=== PATIENT | male | born 1930 | race Caucasian/White ===

== ENCOUNTER 2020-02-23 09:06 | Day surgery (SDC) | payer MEDICARE, OTHER ==
[2020-02-22 11:52] LABS: BASOPHILS # (AUTO) 0.02 x10^3/uL (0-0.1); BASOPHILS % (AUTO) 0 % (0-1); EOSINOPHILS # (AUTO) 0.19 x10^3/uL (0-0.4); EOSINOPHILS % (AUTO) 3 % (1-7); LYMPHOCYTES # (AUTO) 1.32 x10^3/uL (1-3.4); LYMPHOCYTES % (AUTO) 24 % (22-44); MD NO; MEAN CORPUSCULAR HEMOGLOBIN 35.2 pg (27.5-34.5); MEAN CORPUSCULAR HGB CONC 34.8 g/dL (33.2-36.2); MEAN CORPUSCULAR VOLUME 101.1 fL (81-97); MEAN PLATELET VOLUME 8.4 fL (7.4-10.4); MONOCYTES # (AUTO) 0.61 x10^3/uL (0.2-0.8); MONOCYTES % (AUTO) 11 % (2-9); NEUTROPHILS # (AUTO) 3.37 x10^3/uL (1.8-6.8); NEUTROPHILS % (AUTO) 61 % (42-75); PLATELET COUNT 177 x10^3/uL (130-400); RED BLOOD COUNT 4.21 x10^6/uL (4.38-5.82); RED CELL DISTRIBUTION WIDTH 11.9 % (9.4-14.8)
[2020-02-22 12:00] LABS: PROTHROMBIN TIME 10.6 Seconds (9.6-11.5)
[2020-02-22 12:01] LABS: ANION GAP 7 mmol/L (5-15); CHLORIDE 102 mmol/L (98-107); CREATININE 0.81 mg/dL (0.7-1.3)
[2020-02-22 12:24] LABS: MICROSCOPIC INDICATED
[~2020-02-23] VITALS: Ht 172.7 cm; Wt 91.0 kg
[~2020-02-23 09:06] MED LIST: AMLO1CAP3 PO; DOXA4TAB3 PO; FEXO1TAB29 PO; FOLIC ACID PO
[2020-02-23] MEDS ORDERED: LACTATED RINGERS 1,000 ML IV SCH (09:24)
[2020-02-23 09:26] VITALS: BP 157/89
[2020-02-23] MEDS ORDERED: CHLORHEXIDINE 15 ML UDC MM ONE (09:30)
[2020-02-23] MEDS ORDERED: CHLORHEXIDINE 15 ML UDC ONE (09:38)
[2020-02-23] MEDS ORDERED: GEMCITABINE HCL IS ONE (10:00)
[2020-02-23] MEDS ORDERED: SODIUM CHLORIDE 0.9% IS ONE (10:00)
[2020-02-23] MEDS ORDERED: FENTANYL PF 100 MCG/2ML ONE ×2 (11:54→14:01)
[2020-02-23] MEDS ORDERED: ACETAMINOPHEN 325 MG TABLET PO PRN (13:00)
[2020-02-23] MEDS ORDERED: OXYcodone 5 MG/5 ML ORAL.SOL UDC PO PRN (13:00)
[2020-02-23] MEDS ORDERED: LABETALOL 5MG/ML, 20ML IV PRN (13:00)
[2020-02-23] MEDS ORDERED: HYDROmorphone 2 MG/ML, 1ML IVPush PRN (13:00)
[2020-02-23] MEDS ORDERED: hydrALAzine 20 MG/ML, 1ML IV PRN (13:00)
[2020-02-23] MEDS ORDERED: ALBUTEROL SULFATE 2.5 MG/3 ML NPPB PRN (13:00)
[2020-02-23] MEDS ORDERED: MEPERIDINE/PF 25MG/0.5ML IVPush PRN (13:00)
[2020-02-23] MEDS ORDERED: SUGAMMADEX 200 MG/2 ML IVPush ONE (13:14)
[2020-02-23] MEDS ORDERED: SUCCINYLCHOLINE 20 MG/ML, 10ML ONE (13:14)
[2020-02-23] MEDS ORDERED: CEFAZOLIN 1,000 MG ONE (13:14)
[2020-02-23] MEDS ORDERED: ONDANSETRON 2MG/ML, 2ML ONE (13:14)
[2020-02-23] MEDS ORDERED: ROCURONIUM 10MG/ML,5ML ONE (13:14)
[2020-02-23] MEDS ORDERED: PROPOFOL 10 MG/ML, 20ML ONE (13:14)
[2020-02-23] MEDS ORDERED: DEXAMETHASONE 4 MG/ML, 1ML ONE (13:14)
[2020-02-23] MEDS ORDERED: NEOSTIGMINE 1 MG/ML, 10ML ONE (13:14)
[2020-02-23] MEDS ORDERED: GLYCOPYRROLATE 0.2MG/1ML, 5ML ONE (13:14)
[2020-02-23] MEDS: FENTANYL PF 100 MCG/2ML IV PRN ×2 (14:05→14:20)
[2020-02-23] MEDS ORDERED: OXYcodone 5 MG/5 ML ORAL.SOL UDC ONE (14:25)
== END 2020-02-23 16:35 | disposition home or self-care (01) ==
LOC: OUT 09:06
PROVIDERS: ATTEND Student in an Organized Health Care Education/Training Program
DX: D49.4 Neoplasm of unspecified behavior of bladder (principal); C67.4 Malignant neoplasm of posterior wall of bladder; N40.0 Benign prostatic hyperplasia without lower urinary tract symptoms; I10 Essential (primary) hypertension; Z79.01 Long term (current) use of anticoagulants; Z79.899 Other long term (current) drug therapy; Z87.891 Personal history of nicotine dependence; Z95.0 Presence of cardiac pacemaker; Z83.3 Family history of diabetes mellitus
CPT/HCPCS: 36415; 80048; 81001; 85025; 85610; 85730; 87086; 88305; 93005; J0690; J1100; J2405; J2704; J2710; J3010; J0330; J7120

== ENCOUNTER 2020-02-25 00:57 | Inpatient (IN) | payer MEDICARE, OTHER ==
[~2020-02-25] VITALS: Ht 185.4 cm; Wt 85.0 kg
[2020-02-25] MEDS ORDERED: PROPOFOL 100 ML IV PRN (01:06)
[2020-02-25] MEDS ORDERED: PROPOFOL 100 ML IV ONE ×2 (01:10→03:03)
[2020-02-25] MEDS ORDERED: MIDAZOLAM 1 MG/ML, 5ML ONE ×4 (01:27→02:21)
[2020-02-25] MEDS ORDERED: ETOMIDATE 20 MG/10 ML IVPush ONE (01:30)
[2020-02-25] MEDS ORDERED: SODIUM CHLORIDE 0.9% 1,000ML IVBOLUS ONE ×3 (01:30→02:30)
[2020-02-25] MEDS ORDERED: SODIUM CHLORIDE FLUSH 10ML SYR IVF ONE (01:30)
[2020-02-25] MEDS ORDERED: SUCCINYLCHOLINE 20 MG/ML, 10ML IVPush ONE (01:30)
[2020-02-25] MEDS ORDERED: MIDAZOLAM 1 MG/ML, 2ML IVPush ONE ×2 (01:30→05:00)
--- NOTE | 2020-02-25 01:30 | NUR ---
LATE ENTRY: PT PRANAV ANGELES FROM HIS HOME IN [place] THIS MORNING AFTER CALLING [employer] FROM HOME. UPON ARRIVAL, EMS FOUND PT TO BE HYPOXIC AT 75% RA AND INCREASED WORK OF BREATHING. PT PLACED ON CPAP AND TRANSPORTED TO [facility] ED. UPON ARRIVAL, PT FOUND TO BE 84% ON CPAP, WITH RR OF 40. DR HIRSCH NOTIFIED. ROOM PREPPED FOR INTUBATION OF PT. SEPIDEH CABRERA AND PEYTON REYES TO ASSIST THIS RN. PT EXPLAINED PROCEDURE AND VERBALIZES UNDERSTANDING AT THIS TIME.
[2020-02-25 01:31] LABS: BASOPHILS # (AUTO) 0.05 x10^3/uL (0-0.1); BASOPHILS % (AUTO) 0 % (0-1); EOSINOPHILS # (AUTO) 0.02 x10^3/uL (0-0.4); EOSINOPHILS % (AUTO) 0 % (1-7); LYMPHOCYTES # (AUTO) 1.31 x10^3/uL (1-3.4); LYMPHOCYTES % (AUTO) 10 % (22-44); MD NO; MEAN CORPUSCULAR HEMOGLOBIN 34.6 pg (27.5-34.5); MEAN CORPUSCULAR VOLUME 101.7 fL (81-97); MEAN PLATELET VOLUME 8.9 fL (7.4-10.4); MONOCYTES % (AUTO) 3 % (2-9); NEUTROPHILS # (AUTO) 11.27 x10^3/uL (1.8-6.8); NEUTROPHILS % (AUTO) 86 % (42-75); PLATELET COUNT 169 x10^3/uL (130-400); RED BLOOD COUNT 4.17 x10^6/uL (4.38-5.82); RED CELL DISTRIBUTION WIDTH 12.3 % (9.4-14.8)
--- NOTE | 2020-02-25 01:37 | NUR ---
DR HIRSCH AT WITH RT. PT PLACED FLAT AND 20 OF ETOMIDATE AND 160 SUCC WAS GIVEN BY DR. HIRSCH VIA IV PUSH. PT WAS INTUBATED USING 8.0 ET TUBE TAPED AT 24 CM AT THE LIP. CORRECT PLACEMENT OF ET TUBE VERIFIED BY ETCO2 AND AUSCULATION. 14 FR NG TUBE DROPPED AND TAPED ALONGSIDE ET TUBE AT THIS TIME, WITH A SMALL AMOUNT OF GASTRIC CONTENTS PRESENT AND PLACEMENT VERIFIED BY AUSCULATION AT THIS TIME. AWAITING XRAY FOR CONFIRMATION OF PLACEMENT.
[2020-02-25 01:38] LABS: INTERNATIONAL NORMALIZED RATIO 1.01 (0.93-1.1); PROTHROMBIN TIME 10.7 Seconds (9.6-11.5)
--- NOTE | 2020-02-25 01:39 | NUR ---
LEVOPHED REQUESTED FROM PHARM PER VERBAL FROM DR HIRSCH
[2020-02-25 01:42] LABS: ALANINE AMINOTRANSFERASE 35 U/L (12-78); ANION GAP 11 mmol/L (5-15); CALCIUM 8.4 mg/dL (8.5-10.1); CHLORIDE 94 mmol/L (98-107); CREATININE 1.31 mg/dL (0.7-1.3)
--- NOTE | 2020-02-25 01:45 | NUR ---
Pt not tolerating sedation well, versed pushes admin via md verbal order. Pt still not tolerating and bp continues to plummet. Levo to be given peripheral until cxr confirmation of central line. Main rn at bedside.
[2020-02-25 01:46] LABS: ALKALINE PHOSPHATASE 71 U/L (45-117); BILIRUBIN,TOTAL 1.3 mg/dL (0.2-1.0); TOTAL PROTEIN 7.8 g/dL (6.4-8.2)
[2020-02-25] MEDS ORDERED: ROCURONIUM 10MG/ML,5ML ONE (01:47)
--- NOTE | 2020-02-25 01:55 | NUR ---
CALLED RAD FOR CXR
--- NOTE | 2020-02-25 01:55 | NUR ---
DR. HIRSCH AT AND CENTRAL LINE PLACED. LABS DRAWN. JOLLEY CATHETER INITIATED. PT MEDICATED PER MAR AT THIS TIME. RECTAL PROBE THERMOMETER PLACED. AWAITING FURTHER ORDERS AT THIS TIME. A
[2020-02-25] MEDS ORDERED: SODIUM CHLORIDE 0.9% 1,000 ML IV ONE (01:58)
[2020-02-25] MEDS ORDERED: NOREPINEPHRINE 8 MG in SODIUM CHLORIDE 0.9% 242 ML IV PRN ×2 (02:00→04:01)
[2020-02-25] MEDS ORDERED: ASPIRIN 300 MG SUPP PR ONE (02:00)
--- NOTE | 2020-02-25 02:00 | NUR ---
EKG DONE AND GIVEN TO MD. DELAY IN EKG DUE TO PTS CRITICAL NATURE REQUIRING INTUBATION AND CENTRAL LINE PLACEMENT
[2020-02-25] MEDS ORDERED: HEPARIN 5,000 UNITS/ML, 1ML ONE ×2 (02:02→09:26)
[2020-02-25] MEDS ORDERED: HEPARIN 25,000 UNITS/250ML PMX 250 ML ONE (02:04)
--- NOTE | 2020-02-25 02:11 | NUR ---
This rn at bedside to assist in sedation and intubation of pt. In room throughout.
--- NOTE | 2020-02-25 02:20 | NUR ---
Central line confirmed by cxr and levo switched to central line.
[2020-02-25] MEDS ORDERED: CEFTRIAXONE PMX 1GM/50ML 50 ML ONE (02:29)
[2020-02-25] MEDS ORDERED: HEPARIN 5,000 UNITS/ML, 1ML IV ONE (02:30)
[2020-02-25] MEDS ORDERED: CEFTRIAXONE PMX 1GM/50ML 50 ML IV ONE (02:30)
[2020-02-25] MEDS ORDERED: AZITHROMYCIN 500 MG in SODIUM CHLORIDE 0.9% 250 ML IV ONE (02:30)
[2020-02-25] MEDS ORDERED: HEPARIN 25,000 UNITS/250ML PMX 250 ML IV PRN (02:30)
--- NOTE | 2020-02-25 02:34 | NUR ---
Blood cultures noted in chart prior to admin of abx.
--- NOTE | 2020-02-25 03:05 | NUR ---
PT RESTING COMFORTABLY IN [place] AT THIS TIME. VSS. PT PROVIDED WARM BLANKETS. MEDICATIONS AND RATES VERIFIED ON ALL PUMPS. URINE SAMPLE COLLECTED TO SEND TO LAB AT THIS TIME.
--- NOTE | 2020-02-25 03:50 | NUR ---
Note guillermo in EDM - 02/25/[address] at [address] DAVIS AT . PT TOLERATING MEDICATION ADJUSTMENTS WELL. VSS. RT NOTIFIED OF PT O2 SAT IN LOW 90'S AND RT TO COME TO BEDSIDE.
--- NOTE | 2020-02-25 03:52 | NUR ---
NG TUBE ADVANCED APPROXIMATELY 10 CM FURTHER. GASTRIC CONTENTS APPEAR TO BE DRAINING WELL ON INTERMITTENT SUCTION AT THIS TIME.
[2020-02-25 04:13] LABS: MICROSCOPIC INDICATED
[2020-02-25 04:14] LABS: CULTURE INDICATED? YES
[2020-02-25] MEDS ORDERED: GLUCAGON 1 MG IM PRN (04:30)
[2020-02-25] MEDS ORDERED: DEXTROSE 4 GM TAB.CHEW PO PRN (04:30)
[2020-02-25] MEDS ORDERED: PHARMACY MAY ADJ FOR RENAL FX MC SCH ×2 (04:30→14:00)
[2020-02-25] MEDS ORDERED: LIDOCAINE-MPF 1%, 2ML ENDO PRN ×2 (04:30→14:00)
[2020-02-25] MEDS ORDERED: BISACODYL 10 MG SUPP PR PRN (04:30)
[2020-02-25] MEDS ORDERED: DEXTROSE 50%, 50ML SYRINGE IVPush PRN (04:30)
[2020-02-25] MEDS ORDERED: SENNA 176 MG/5 ML ORAL SOL NG PRN (04:30)
--- NOTE | 2020-02-25 04:58 | NUR ---
LATE ENTRY- VERBAL ORDERS RECEIVED DURING INTUBATION FROM DR HIRSCH FOR A TOTAL OF 20 MG VERSED. PT WAS MEDICATED WITH VERSED IN 5 MG DOSES @ 0120, 0128, 0138 AND 0155. MEDICATION WAS PLACED ONE DOSE BY DR. HIRSCH TO ACCOUNT FOR TOTAL VOLUME OF VERSED GIVEN DURING CARE OF PT.
--- NOTE | 2020-02-25 05:23 | NUR ---
REPORT OF PT TO PEYTON SANTIAGO AT THIS TIME. ALL QUESTIONS ANSWERED. PT BEING TRANSPORTED TO ICU WITH SEPIDEH HARRIS, AND PEYTON Soliman PT STABLE PRIOR TO D/C. RT CALLED FOR ASSISTANCE TO TRANSPORT VENTILATOR.
[2020-02-25] MEDS ORDERED: PYRI (05:27)
[2020-02-25 06:03] LABS: MEAN CORPUSCULAR HEMOGLOBIN 35.2 pg (27.5-34.5); MEAN CORPUSCULAR HGB CONC 34.5 g/dL (33.2-36.2); MEAN PLATELET VOLUME 9.1 fL (7.4-10.4); PLATELET COUNT 163 x10^3/uL (130-400); RED BLOOD COUNT 3.92 x10^6/uL (4.38-5.82); RED CELL DISTRIBUTION WIDTH 12.6 % (9.4-14.8)
[2020-02-25 06:08] LABS: ALANINE AMINOTRANSFERASE 33 U/L (12-78); ALBUMIN 3.4 g/dL (3.4-5.0); ANION GAP 9 mmol/L (5-15); CALCIUM 7.7 mg/dL (8.5-10.1); CHLORIDE 100 mmol/L (98-107); CREATININE 1.07 mg/dL (0.7-1.3)
[2020-02-25 06:12] LABS: ALKALINE PHOSPHATASE 61 U/L (45-117); BILIRUBIN,TOTAL 1.4 mg/dL (0.2-1.0); CHOL/HDL RATIO 2.6; CHOLESTEROL, TOTAL 163 mg/dL (140-239); HDL CHOL % 38 % (26-37); HDL CHOLESTEROL (DIRECT) 62 mg/dL (40-60); LDL CHOLESTEROL,CALCULATED 84 mg/dL (54-169); LDL/HDL RATIO 1.4 (0.5-3.0); TRIGLYCERIDES 87 mg/dL (50-200); VLDL CHOLESTEROL 17 mg/dL (0-25)
[2020-02-25 06:42] LABS: BASOPHILS # (AUTO) 0.07 x10^3/uL (0-0.1); BASOPHILS % (AUTO) 1 % (0-1); EOSINOPHILS % (AUTO) 0 % (1-7); LYMPHOCYTES # (AUTO) 0.69 x10^3/uL (1-3.4); LYMPHOCYTES % (AUTO) 5 % (22-44); MD SCAN; MONOCYTES # (AUTO) 0.25 x10^3/uL (0.2-0.8); MONOCYTES % (AUTO) 2 % (2-9); NEUTROPHILS # (AUTO) 13.07 x10^3/uL (1.8-6.8); NEUTROPHILS % (AUTO) 93 % (42-75)
[2020-02-25] MEDS: PROPOFOL 100 ML IV PRN ×3 (07:40→21:19)
[2020-02-25] MEDS: AZITHROMYCIN 500 MG in SODIUM CHLORIDE 0.9% 250 ML IV SCH (07:41)
[2020-02-25] MEDS: SODIUM CHLORIDE FLUSH 10ML SYR IVF SCH ×2 (09:00→21:18)
[2020-02-25] MEDS ORDERED: NOREPINEPHRINE 32 MG in SODIUM CHLORIDE 0.9% 218 ML IV PRN (10:00)
[2020-02-25] MEDS: HEPARIN 5,000 UNITS/ML, 1ML IV PRN ×2 (10:02→17:56)
[2020-02-25] MEDS: CEFTRIAXONE PMX 1GM/50ML 50 ML IV SCH (10:02)
[2020-02-25] MEDS: INSULIN LISPRO 100 UNITS/ML, PEN SQ-INSULIN SCH ×4 (10:07→21:41)
[2020-02-25] MEDS: HEPARIN 25,000 UNITS/250ML PMX 250 ML IV PRN ×3 (10:20→20:57)
[2020-02-25 12:10] LABS: RAPID INFLUENZA A POSITIVE (Negative); RAPID INFLUENZA B Negative (Negative)
[2020-02-25 14:32] LABS: TRIGLYCERIDES 82 mg/dL (50-200)
[2020-02-25] MEDS: OSELTAMIVIR 6 MG/ML ORAL SUSP PO SCH ×2 (16:35→21:19)
[2020-02-26] MEDS: PROPOFOL 100 ML IV PRN ×3 (03:21→17:13)
[2020-02-26] MEDS: INSULIN LISPRO 100 UNITS/ML, PEN SQ-INSULIN SCH ×4 (05:20→21:34)
[2020-02-26 05:46] LABS: CALCIUM 7.9 mg/dL (8.5-10.1); CREATININE 0.79 mg/dL (0.7-1.3)
[2020-02-26 05:49] LABS: BASOPHILS # (AUTO) 0.04 x10^3/uL (0-0.1); BASOPHILS % (AUTO) 1 % (0-1); EOSINOPHILS # (AUTO) 0.06 x10^3/uL (0-0.4); EOSINOPHILS % (AUTO) 1 % (1-7); LYMPHOCYTES # (AUTO) 1.03 x10^3/uL (1-3.4); LYMPHOCYTES % (AUTO) 15 % (22-44); MD NO; MEAN CORPUSCULAR HGB CONC 34.4 g/dL (33.2-36.2); MEAN CORPUSCULAR VOLUME 101.7 fL (81-97); MEAN PLATELET VOLUME 8.7 fL (7.4-10.4); MONOCYTES # (AUTO) 0.19 x10^3/uL (0.2-0.8); MONOCYTES % (AUTO) 3 % (2-9); NEUTROPHILS # (AUTO) 5.47 x10^3/uL (1.8-6.8); NEUTROPHILS % (AUTO) 80 % (42-75); PLATELET COUNT 128 x10^3/uL (130-400); RED BLOOD COUNT 3.47 x10^6/uL (4.38-5.82); RED CELL DISTRIBUTION WIDTH 12.7 % (9.4-14.8)
[2020-02-26 05:51] LABS: ANION GAP 7 mmol/L (5-15); CHLORIDE 103 mmol/L (98-107)
[2020-02-26] MEDS: AZITHROMYCIN 500 MG in SODIUM CHLORIDE 0.9% 250 ML IV SCH (06:44)
[2020-02-26] MEDS ORDERED: LEVOFLOXACIN/PMX 750MG/150ML 150 ML IV SCH (08:00)
[2020-02-26] MEDS: OSELTAMIVIR 6 MG/ML ORAL SUSP PO SCH ×2 (09:35→21:34)
[2020-02-26] MEDS: CEFTRIAXONE PMX 1GM/50ML 50 ML IV SCH (09:36)
[2020-02-26] MEDS: SODIUM CHLORIDE FLUSH 10ML SYR IVF SCH ×2 (09:36→21:33)
[2020-02-26] MEDS: HEPARIN 5,000 UNITS/ML, 1ML IV PRN (14:46)
[2020-02-26] MEDS: HEPARIN 25,000 UNITS/250ML PMX 250 ML IV PRN (14:48)
[2020-02-26] MEDS: ATORVASTATIN 80 MG TABLET PO SCH (21:33)
[2020-02-27] MEDS: PROPOFOL 100 ML IV PRN ×4 (00:07→22:46)
[2020-02-27] MEDS: INSULIN LISPRO 100 UNITS/ML, PEN SQ-INSULIN SCH ×4 (03:41→22:00)
[2020-02-27 03:57] LABS: BASOPHILS # (AUTO) 0.01 x10^3/uL (0-0.1); BASOPHILS % (AUTO) 0 % (0-1); EOSINOPHILS # (AUTO) 0.15 x10^3/uL (0-0.4); EOSINOPHILS % (AUTO) 3 % (1-7); LYMPHOCYTES # (AUTO) 1.01 x10^3/uL (1-3.4); LYMPHOCYTES % (AUTO) 17 % (22-44); MD NO; MEAN CORPUSCULAR HEMOGLOBIN 34.9 pg (27.5-34.5); MEAN CORPUSCULAR HGB CONC 34.1 g/dL (33.2-36.2); MEAN CORPUSCULAR VOLUME 102.4 fL (81-97); MEAN PLATELET VOLUME 8.7 fL (7.4-10.4); MONOCYTES # (AUTO) 0.16 x10^3/uL (0.2-0.8); MONOCYTES % (AUTO) 3 % (2-9); NEUTROPHILS # (AUTO) 4.54 x10^3/uL (1.8-6.8); NEUTROPHILS % (AUTO) 77 % (42-75); PLATELET COUNT 128 x10^3/uL (130-400); RED BLOOD COUNT 3.11 x10^6/uL (4.38-5.82); RED CELL DISTRIBUTION WIDTH 12.4 % (9.4-14.8)
[2020-02-27 04:03] LABS: ANION GAP 4 mmol/L (5-15); CALCIUM 7.8 mg/dL (8.5-10.1); CHLORIDE 105 mmol/L (98-107); CREATININE 0.67 mg/dL (0.7-1.3)
[2020-02-27] MEDS ORDERED: ASPIRIN 81 MG TABLET EC PO SCH (06:00)
[2020-02-27] MEDS: AZITHROMYCIN 500 MG in SODIUM CHLORIDE 0.9% 250 ML IV SCH (07:51)
[2020-02-27] MEDS: POTASSIUM CHLORIDE 10% 40 MEQ/30 ML UDC PO SCH ×2 (08:54→22:46)
[2020-02-27] MEDS: OSELTAMIVIR 6 MG/ML ORAL SUSP PO SCH ×2 (08:54→22:46)
[2020-02-27] MEDS: SODIUM CHLORIDE FLUSH 10ML SYR IVF SCH (08:55)
[2020-02-27] MEDS: ASPIRIN 81 MG TABLET CHEW NG SCH (08:55)
[2020-02-27] MEDS: LACTULOSE 20 GM/30 ML UDC NG PRN (08:55)
[2020-02-27] MEDS ORDERED: FUROSEMIDE 40 MG/4 ML IV ONE (09:30)
[2020-02-27] MEDS: CEFTRIAXONE PMX 1GM/50ML 50 ML IV SCH (10:29)
[2020-02-27] MEDS: ATORVASTATIN 80 MG TABLET PO SCH (22:45)
[2020-02-28] MEDS: PROPOFOL 100 ML IV PRN ×3 (04:55→20:54)
[2020-02-28] MEDS: SODIUM CHLORIDE FLUSH 10ML SYR IVF SCH ×3 (04:55→20:56)
[2020-02-28 05:20] LABS: ANION GAP 5 mmol/L (5-15); CALCIUM 8.5 mg/dL (8.5-10.1); CHLORIDE 107 mmol/L (98-107); CREATININE 0.84 mg/dL (0.7-1.3); TRIGLYCERIDES 136 mg/dL (50-200)
[2020-02-28 05:54] LABS: BASOPHILS # (AUTO) 0.02 x10^3/uL (0-0.1); BASOPHILS % (AUTO) 0 % (0-1); EOSINOPHILS # (AUTO) 0.16 x10^3/uL (0-0.4); EOSINOPHILS % (AUTO) 3 % (1-7); LYMPHOCYTES # (AUTO) 0.73 x10^3/uL (1-3.4); LYMPHOCYTES % (AUTO) 12 % (22-44); MD SCAN; MEAN CORPUSCULAR HEMOGLOBIN 35.1 pg (27.5-34.5); MEAN CORPUSCULAR HGB CONC 34.1 g/dL (33.2-36.2); MEAN CORPUSCULAR VOLUME 102.7 fL (81-97); MEAN PLATELET VOLUME 8.6 fL (7.4-10.4); MONOCYTES # (AUTO) 0.27 x10^3/uL (0.2-0.8); MONOCYTES % (AUTO) 5 % (2-9); NEUTROPHILS # (AUTO) 4.73 x10^3/uL (1.8-6.8); NEUTROPHILS % (AUTO) 80 % (42-75); PLATELET COUNT 134 x10^3/uL (130-400); RED BLOOD COUNT 3.22 x10^6/uL (4.38-5.82); RED CELL DISTRIBUTION WIDTH 12.4 % (9.4-14.8)
[2020-02-28] MEDS: AZITHROMYCIN 500 MG in SODIUM CHLORIDE 0.9% 250 ML IV SCH (06:00)
[2020-02-28] MEDS: INSULIN LISPRO 100 UNITS/ML, PEN SQ-INSULIN SCH ×2 (06:01→08:05)
[2020-02-28] MEDS: OSELTAMIVIR 6 MG/ML ORAL SUSP PO SCH ×2 (07:58→20:54)
[2020-02-28] MEDS: ASPIRIN 81 MG TABLET CHEW NG SCH (07:58)
[2020-02-28] MEDS: ENOXAPARIN 40 MG/0.4 ML SQ SCH (07:59)
[2020-02-28] MEDS: CEFTRIAXONE PMX 1GM/50ML 50 ML IV SCH (09:12)
[2020-02-28] MEDS ORDERED: FUROSEMIDE 20 MG/2 ML IV ONE (19:00)
[2020-02-28] MEDS: ATORVASTATIN 80 MG TABLET PO SCH (20:54)
[2020-02-29] MEDS: PROPOFOL 100 ML IV PRN ×5 (00:54→21:10)
[2020-02-29] MEDS: AZITHROMYCIN 500 MG in SODIUM CHLORIDE 0.9% 250 ML IV SCH (06:44)
[2020-02-29 07:39] LABS: ANION GAP 7 mmol/L (5-15); CALCIUM 8.5 mg/dL (8.5-10.1); CHLORIDE 105 mmol/L (98-107); CREATININE 0.66 mg/dL (0.7-1.3)
[2020-02-29 07:47] LABS: BASOPHILS # (AUTO) 0.04 x10^3/uL (0-0.1); BASOPHILS % (AUTO) 1 % (0-1); EOSINOPHILS # (AUTO) 0.13 x10^3/uL (0-0.4); EOSINOPHILS % (AUTO) 3 % (1-7); LYMPHOCYTES # (AUTO) 0.57 x10^3/uL (1-3.4); LYMPHOCYTES % (AUTO) 15 % (22-44); MD NO; MEAN CORPUSCULAR HEMOGLOBIN 34.6 pg (27.5-34.5); MEAN CORPUSCULAR HGB CONC 33.8 g/dL (33.2-36.2); MEAN CORPUSCULAR VOLUME 102.4 fL (81-97); MEAN PLATELET VOLUME 7.9 fL (7.4-10.4); MONOCYTES # (AUTO) 0.47 x10^3/uL (0.2-0.8); MONOCYTES % (AUTO) 12 % (2-9); NEUTROPHILS # (AUTO) 2.69 x10^3/uL (1.8-6.8); NEUTROPHILS % (AUTO) 69 % (42-75); PLATELET COUNT 135 x10^3/uL (130-400); RED BLOOD COUNT 3.28 x10^6/uL (4.38-5.82); RED CELL DISTRIBUTION WIDTH 12.5 % (9.4-14.8)
[2020-02-29 07:48] LABS: HEMOGRAM NOTE RECHECKED
[2020-02-29] MEDS: OSELTAMIVIR 6 MG/ML ORAL SUSP PO SCH ×2 (08:51→21:09)
[2020-02-29] MEDS: SODIUM CHLORIDE FLUSH 10ML SYR IVF SCH ×2 (08:51→21:09)
[2020-02-29] MEDS: ENOXAPARIN 40 MG/0.4 ML SQ SCH (08:52)
[2020-02-29] MEDS: ASPIRIN 81 MG TABLET CHEW NG SCH (08:52)
[2020-02-29] MEDS: SENNA/DOCUSATE TABLET NG PRN ×2 (09:00→21:09)
[2020-02-29] MEDS: CEFTRIAXONE PMX 1GM/50ML 50 ML IV SCH (09:08)
[2020-02-29] MEDS: LACTULOSE 20 GM/30 ML UDC NG PRN (09:30)
[2020-02-29] MEDS ORDERED: FUROSEMIDE 40 MG/4 ML IV ONE (11:30)
[2020-02-29] MEDS ORDERED: POTASSIUM CHLORIDE 10% 20 MEQ/15 ML UDC PO ONE (11:30)
[2020-02-29] MEDS: ATORVASTATIN 80 MG TABLET PO SCH (21:09)
[2020-03-01] MEDS: PROPOFOL 100 ML IV PRN ×3 (05:43→20:49)
[2020-03-01 06:05] LABS: ALBUMIN 2.6 g/dL (3.4-5.0); ANION GAP 7 mmol/L (5-15); CALCIUM 8.7 mg/dL (8.5-10.1); CHLORIDE 102 mmol/L (98-107)
[2020-03-01 06:08] LABS: BASOPHILS # (AUTO) 0.02 x10^3/uL (0-0.1); BASOPHILS % (AUTO) 0 % (0-1); EOSINOPHILS # (AUTO) 0.13 x10^3/uL (0-0.4); EOSINOPHILS % (AUTO) 3 % (1-7); LYMPHOCYTES # (AUTO) 0.65 x10^3/uL (1-3.4); LYMPHOCYTES % (AUTO) 13 % (22-44); MD NO; MEAN CORPUSCULAR HEMOGLOBIN 34.6 pg (27.5-34.5); MEAN CORPUSCULAR HGB CONC 34.1 g/dL (33.2-36.2); MEAN CORPUSCULAR VOLUME 101.4 fL (81-97); MEAN PLATELET VOLUME 8.3 fL (7.4-10.4); MONOCYTES % (AUTO) 10 % (2-9); NEUTROPHILS # (AUTO) 3.74 x10^3/uL (1.8-6.8); NEUTROPHILS % (AUTO) 74 % (42-75); PLATELET COUNT 145 x10^3/uL (130-400); RED BLOOD COUNT 3.26 x10^6/uL (4.38-5.82); RED CELL DISTRIBUTION WIDTH 12.2 % (9.4-14.8)
[2020-03-01 06:09] LABS: ALANINE AMINOTRANSFERASE 33 U/L (12-78); ALKALINE PHOSPHATASE 60 U/L (45-117); BILIRUBIN,TOTAL 0.4 mg/dL (0.2-1.0); CREATININE 0.68 mg/dL (0.7-1.3); TOTAL PROTEIN 6.4 g/dL (6.4-8.2)
[2020-03-01] MEDS: SODIUM CHLORIDE FLUSH 10ML SYR IVF SCH ×2 (07:34→21:56)
[2020-03-01] MEDS: AZITHROMYCIN 500 MG in SODIUM CHLORIDE 0.9% 250 ML IV SCH (07:34)
[2020-03-01] MEDS: ASPIRIN 81 MG TABLET CHEW NG SCH (09:46)
[2020-03-01] MEDS: OSELTAMIVIR 6 MG/ML ORAL SUSP PO SCH ×2 (09:46→21:56)
[2020-03-01] MEDS: ENOXAPARIN 40 MG/0.4 ML SQ SCH (09:46)
[2020-03-01] MEDS: CEFTRIAXONE PMX 1GM/50ML 50 ML IV SCH (09:46)
[2020-03-01] MEDS: INSULIN LISPRO 100 UNITS/ML, PEN SQ-INSULIN SCH ×3 (10:53→22:02)
[2020-03-01] MEDS ORDERED: INSULIN LISPRO 100 UNITS/ML, PEN SQ-INSULIN SCH (11:00)
[2020-03-01] MEDS: METOPROLOL TARTRATE 25 MG TAB PO SCH (17:35)
[2020-03-01] MEDS: ATORVASTATIN 80 MG TABLET PO SCH (21:56)
[2020-03-02] MEDS: PROPOFOL 100 ML IV PRN ×3 (02:44→20:24)
[2020-03-02] MEDS: INSULIN LISPRO 100 UNITS/ML, PEN SQ-INSULIN SCH ×4 (04:55→23:15)
[2020-03-02 05:47] LABS: ANION GAP 6 mmol/L (5-15); BASOPHILS # (AUTO) 0.02 x10^3/uL (0-0.1); BASOPHILS % (AUTO) 0 % (0-1); CALCIUM 8.4 mg/dL (8.5-10.1); CHLORIDE 101 mmol/L (98-107); CREATININE 0.71 mg/dL (0.7-1.3); EOSINOPHILS # (AUTO) 0.21 x10^3/uL (0-0.4); EOSINOPHILS % (AUTO) 4 % (1-7); LYMPHOCYTES # (AUTO) 0.68 x10^3/uL (1-3.4); LYMPHOCYTES % (AUTO) 12 % (22-44); MD NO; MEAN CORPUSCULAR HEMOGLOBIN 34.9 pg (27.5-34.5); MEAN CORPUSCULAR HGB CONC 34.3 g/dL (33.2-36.2); MEAN CORPUSCULAR VOLUME 101.7 fL (81-97); MEAN PLATELET VOLUME 8.3 fL (7.4-10.4); MONOCYTES # (AUTO) 0.54 x10^3/uL (0.2-0.8); MONOCYTES % (AUTO) 10 % (2-9); NEUTROPHILS # (AUTO) 4.02 x10^3/uL (1.8-6.8); NEUTROPHILS % (AUTO) 74 % (42-75); PLATELET COUNT 155 x10^3/uL (130-400); RED BLOOD COUNT 3.17 x10^6/uL (4.38-5.82); RED CELL DISTRIBUTION WIDTH 12.3 % (9.4-14.8); TRIGLYCERIDES 121 mg/dL (50-200)
[2020-03-02] MEDS: AZITHROMYCIN 500 MG in SODIUM CHLORIDE 0.9% 250 ML IV SCH (05:57)
[2020-03-02] MEDS: METOPROLOL TARTRATE 25 MG TAB PO SCH ×2 (05:57→17:52)
[2020-03-02] MEDS ORDERED: FUROSEMIDE 20 MG/2 ML IV ONE (08:13)
[2020-03-02] MEDS ORDERED: POTASSIUM CHLORIDE 20 MEQ TAB.ER.PRT PO ONE (08:14)
[2020-03-02] MEDS ORDERED: POTASSIUM CHLORIDE 10% 20 MEQ/15 ML UDC ONE (08:54)
[2020-03-02] MEDS: ENOXAPARIN 40 MG/0.4 ML SQ SCH (10:31)
[2020-03-02] MEDS: OSELTAMIVIR 6 MG/ML ORAL SUSP PO SCH ×2 (10:31→20:24)
[2020-03-02] MEDS: ASPIRIN 81 MG TABLET CHEW NG SCH (10:31)
[2020-03-02] MEDS: SODIUM CHLORIDE FLUSH 10ML SYR IVF SCH ×2 (10:32→20:23)
[2020-03-02] MEDS: CEFTRIAXONE PMX 1GM/50ML 50 ML IV SCH (11:22)
[2020-03-02] MEDS ORDERED: POTASSIUM CHLORIDE 20 MEQ TAB.ER.PRT PO SCH (17:00)
[2020-03-02] MEDS: FUROSEMIDE 20 MG/2 ML IV SCH (17:51)
[2020-03-02] MEDS: ATORVASTATIN 80 MG TABLET PO SCH (20:23)
[2020-03-03] MEDS: PROPOFOL 100 ML IV PRN (02:12)
[2020-03-03] MEDS: INSULIN LISPRO 100 UNITS/ML, PEN SQ-INSULIN SCH ×4 (04:36→22:46)
[2020-03-03 05:07] LABS: ANION GAP 4 mmol/L (5-15); CALCIUM 8.9 mg/dL (8.5-10.1); CHLORIDE 99 mmol/L (98-107); CREATININE 0.77 mg/dL (0.7-1.3)
[2020-03-03 05:10] LABS: BASOPHILS # (AUTO) 0.03 x10^3/uL (0-0.1); BASOPHILS % (AUTO) 1 % (0-1); EOSINOPHILS # (AUTO) 0.24 x10^3/uL (0-0.4); EOSINOPHILS % (AUTO) 4 % (1-7); LYMPHOCYTES # (AUTO) 0.69 x10^3/uL (1-3.4); LYMPHOCYTES % (AUTO) 10 % (22-44); MD NO; MEAN CORPUSCULAR HEMOGLOBIN 34.6 pg (27.5-34.5); MEAN CORPUSCULAR HGB CONC 34.1 g/dL (33.2-36.2); MEAN CORPUSCULAR VOLUME 101.4 fL (81-97); MEAN PLATELET VOLUME 8.4 fL (7.4-10.4); MONOCYTES % (AUTO) 9 % (2-9); NEUTROPHILS # (AUTO) 5.31 x10^3/uL (1.8-6.8); NEUTROPHILS % (AUTO) 77 % (42-75); PLATELET COUNT 189 x10^3/uL (130-400); RED BLOOD COUNT 3.59 x10^6/uL (4.38-5.82); RED CELL DISTRIBUTION WIDTH 12.1 % (9.4-14.8)
[2020-03-03] MEDS: METOPROLOL TARTRATE 25 MG TAB PO SCH (05:32)
[2020-03-03] MEDS: AZITHROMYCIN 500 MG in SODIUM CHLORIDE 0.9% 250 ML IV SCH (05:32)
[2020-03-03] MEDS: FUROSEMIDE 20 MG/2 ML IV SCH ×2 (10:53→17:56)
[2020-03-03] MEDS: ASPIRIN 81 MG TABLET CHEW NG SCH (10:53)
[2020-03-03] MEDS: LISINOPRIL 10 MG TABLET PO SCH (10:53)
[2020-03-03] MEDS: SODIUM CHLORIDE FLUSH 10ML SYR IVF SCH ×2 (10:54→22:40)
[2020-03-03] MEDS: ENOXAPARIN 40 MG/0.4 ML SQ SCH (10:54)
[2020-03-03] MEDS: SPIRONOLACTONE 25 MG TABLET PO SCH (10:55)
[2020-03-03] MEDS: CEFTRIAXONE PMX 1GM/50ML 50 ML IV SCH (10:56)
[2020-03-03] MEDS: INSULIN GLARGINE 100 UNITS/ML, PEN SQ-INSULIN SCH ×2 (11:35→22:46)
[2020-03-03] MEDS: CARVEDILOL 3.125 MG TABLET PO SCH (17:56)
[2020-03-03] MEDS: ATORVASTATIN 80 MG TABLET PO SCH (22:40)
[2020-03-04 04:51] LABS: ANION GAP 5 mmol/L (5-15); CALCIUM 8.8 mg/dL (8.5-10.1); CHLORIDE 97 mmol/L (98-107); CREATININE 0.74 mg/dL (0.7-1.3)
[2020-03-04 04:58] LABS: BASOPHILS # (AUTO) 0.02 x10^3/uL (0-0.1); BASOPHILS % (AUTO) 0 % (0-1); EOSINOPHILS % (AUTO) 2 % (1-7); LYMPHOCYTES # (AUTO) 0.87 x10^3/uL (1-3.4); LYMPHOCYTES % (AUTO) 10 % (22-44); MD NO; MEAN CORPUSCULAR HEMOGLOBIN 34.6 pg (27.5-34.5); MEAN CORPUSCULAR HGB CONC 34.1 g/dL (33.2-36.2); MEAN CORPUSCULAR VOLUME 101.5 fL (81-97); MEAN PLATELET VOLUME 8.2 fL (7.4-10.4); MONOCYTES # (AUTO) 0.72 x10^3/uL (0.2-0.8); MONOCYTES % (AUTO) 8 % (2-9); NEUTROPHILS # (AUTO) 6.84 x10^3/uL (1.8-6.8); NEUTROPHILS % (AUTO) 79 % (42-75); PLATELET COUNT 209 x10^3/uL (130-400); RED BLOOD COUNT 3.57 x10^6/uL (4.38-5.82)
[2020-03-04] MEDS: CARVEDILOL 3.125 MG TABLET PO SCH ×3 (06:18→20:42)
[2020-03-04] MEDS: CEFTRIAXONE PMX 1GM/50ML 50 ML IV SCH (08:45)
[2020-03-04] MEDS: SPIRONOLACTONE 25 MG TABLET PO SCH (08:46)
[2020-03-04] MEDS: ASPIRIN 81 MG TABLET CHEW NG SCH (08:46)
[2020-03-04] MEDS: LISINOPRIL 10 MG TABLET PO SCH (08:46)
[2020-03-04] MEDS: FUROSEMIDE 20 MG/2 ML IV SCH ×2 (08:46→17:04)
[2020-03-04] MEDS: SODIUM CHLORIDE FLUSH 10ML SYR IVF SCH ×2 (08:47→20:06)
[2020-03-04] MEDS: INSULIN GLARGINE 100 UNITS/ML, PEN SQ-INSULIN SCH ×2 (08:48→20:45)
[2020-03-04] MEDS: INSULIN LISPRO 100 UNITS/ML, PEN SQ-INSULIN SCH ×3 (08:48→20:45)
[2020-03-04] MEDS: ENOXAPARIN 40 MG/0.4 ML SQ SCH (09:00)
[2020-03-04] MEDS ORDERED: ALBUTEROL/IPRATROPIUM 2.5MG/0.5MG, 3 ML ONE (17:10)
[2020-03-04] MEDS ORDERED: FUROSEMIDE 20 MG/2 ML IV ONE (17:30)
[2020-03-04] MEDS: ALBUTEROL/IPRATROPIUM 2.5MG/0.5MG, 3 ML NPPB SCH (19:45)
[2020-03-04] MEDS ORDERED: FUROSEMIDE 40 MG/4 ML IV ONE (20:00)
[2020-03-04] MEDS: ATORVASTATIN 80 MG TABLET PO SCH (20:42)
[2020-03-05] MEDS: ALBUTEROL/IPRATROPIUM 2.5MG/0.5MG, 3 ML NPPB SCH ×2 (01:50→08:00)
[2020-03-05 04:56] LABS: MEAN CORPUSCULAR HEMOGLOBIN 34.9 pg (27.5-34.5); MEAN CORPUSCULAR HGB CONC 34.3 g/dL (33.2-36.2); MEAN CORPUSCULAR VOLUME 101.8 fL (81-97); MEAN PLATELET VOLUME 8.6 fL (7.4-10.4); PLATELET COUNT 304 x10^3/uL (130-400); RED BLOOD COUNT 3.73 x10^6/uL (4.38-5.82); RED CELL DISTRIBUTION WIDTH 11.7 % (9.4-14.8)
[2020-03-05 05:02] LABS: ALANINE AMINOTRANSFERASE 49 U/L (12-78); ANION GAP 8 mmol/L (5-15); CALCIUM 9.2 mg/dL (8.5-10.1); CHLORIDE 93 mmol/L (98-107); CREATININE 0.92 mg/dL (0.7-1.3)
[2020-03-05 05:05] LABS: ALKALINE PHOSPHATASE 88 U/L (45-117); BILIRUBIN,TOTAL 0.8 mg/dL (0.2-1.0); TOTAL PROTEIN 7.7 g/dL (6.4-8.2)
[2020-03-05 05:38] LABS: BASOPHILS # (AUTO) 0.02 x10^3/uL (0-0.1); BASOPHILS % (AUTO) 0 % (0-1); EOSINOPHILS # (AUTO) 0.01 x10^3/uL (0-0.4); EOSINOPHILS % (AUTO) 0 % (1-7); LYMPHOCYTES # (AUTO) 0.73 x10^3/uL (1-3.4); LYMPHOCYTES % (AUTO) 6 % (22-44); MD SCAN; MONOCYTES % (AUTO) 6 % (2-9); NEUTROPHILS # (AUTO) 11.76 x10^3/uL (1.8-6.8); NEUTROPHILS % (AUTO) 88 % (42-75)
[2020-03-05] MEDS: AcetaZOLAMIDE INJ 500 MG IVPush SCH (07:44)
[2020-03-05] MEDS: FUROSEMIDE 20 MG/2 ML IV SCH ×2 (07:44→17:18)
[2020-03-05] MEDS: INSULIN LISPRO 100 UNITS/ML, PEN SQ-INSULIN SCH ×4 (07:45→20:18)
[2020-03-05] MEDS: PANTOPRAZOLE 40 MG IV IVPush SCH (07:45)
[2020-03-05] MEDS: SODIUM CHLORIDE FLUSH 10ML SYR IVF SCH ×2 (07:45→20:18)
[2020-03-05] MEDS: INSULIN GLARGINE 100 UNITS/ML, PEN SQ-INSULIN SCH ×2 (09:00→20:18)
[2020-03-05] MEDS: ENOXAPARIN 40 MG/0.4 ML SQ SCH (09:37)
[2020-03-05 10:19] LABS: TROPONIN I 0.895 ng/mL (0.000-0.045)
[2020-03-05] MEDS: CEFTRIAXONE PMX 1GM/50ML 50 ML IV SCH (10:38)
--- NOTE | 2020-03-05 12:54 | NUR ---
Rec: NPO with alternative means of nutrition/hydration - the patient may benefit from FIELD DIRECTOR intervention in a SNF at time of d/c. Addendum: 03/05/20 at 1255 by Cheryl JACKSON Amended: Links added.
[2020-03-05] MEDS: ASPIRIN 81 MG TABLET CHEW NG SCH (13:25)
[2020-03-05] MEDS: SPIRONOLACTONE 25 MG TABLET PO SCH (13:25)
[2020-03-05] MEDS: LISINOPRIL 10 MG TABLET PO SCH (13:25)
[2020-03-05] MEDS: CARVEDILOL 3.125 MG TABLET PO SCH ×2 (13:25→17:19)
[2020-03-05] MEDS ORDERED: ALBUTEROL/IPRATROPIUM 2.5MG/0.5MG, 3 ML NPPB PRN (16:30)
[2020-03-05] MEDS: ATORVASTATIN 80 MG TABLET PO SCH (20:18)
[2020-03-06 03:26] LABS: BASOPHILS % (AUTO) 0 % (0-1); EOSINOPHILS # (AUTO) 0.21 x10^3/uL (0-0.4); EOSINOPHILS % (AUTO) 2 % (1-7); LYMPHOCYTES % (AUTO) 7 % (22-44); MD NO; MEAN CORPUSCULAR HEMOGLOBIN 34.4 pg (27.5-34.5); MEAN CORPUSCULAR HGB CONC 34.2 g/dL (33.2-36.2); MEAN CORPUSCULAR VOLUME 100.6 fL (81-97); MEAN PLATELET VOLUME 8.6 fL (7.4-10.4); MONOCYTES # (AUTO) 0.88 x10^3/uL (0.2-0.8); MONOCYTES % (AUTO) 9 % (2-9); NEUTROPHILS # (AUTO) 8.15 x10^3/uL (1.8-6.8); NEUTROPHILS % (AUTO) 82 % (42-75); PLATELET COUNT 323 x10^3/uL (130-400); RED CELL DISTRIBUTION WIDTH 12.1 % (9.4-14.8)
[2020-03-06 03:27] LABS: ALANINE AMINOTRANSFERASE 43 U/L (12-78); ALBUMIN 2.7 g/dL (3.4-5.0); ANION GAP 6 mmol/L (5-15); CALCIUM 8.6 mg/dL (8.5-10.1); CHLORIDE 97 mmol/L (98-107); CREATININE 1.06 mg/dL (0.7-1.3)
[2020-03-06 03:53] LABS: ALKALINE PHOSPHATASE 80 U/L (45-117); BILIRUBIN,TOTAL 0.6 mg/dL (0.2-1.0)
[2020-03-06] MEDS: CARVEDILOL 3.125 MG TABLET PO SCH ×2 (05:29→17:33)
[2020-03-06] MEDS: FUROSEMIDE 20 MG/2 ML IV SCH ×2 (08:02→16:28)
[2020-03-06] MEDS: INSULIN LISPRO 100 UNITS/ML, PEN SQ-INSULIN SCH ×3 (08:02→20:36)
[2020-03-06] MEDS: AcetaZOLAMIDE INJ 500 MG IVPush SCH (08:03)
[2020-03-06] MEDS: PANTOPRAZOLE 40 MG IV IVPush SCH (08:05)
[2020-03-06] MEDS: ASPIRIN 81 MG TABLET CHEW NG SCH (08:05)
[2020-03-06] MEDS: SODIUM CHLORIDE FLUSH 10ML SYR IVF SCH ×2 (08:06→20:37)
[2020-03-06] MEDS: INSULIN GLARGINE 100 UNITS/ML, PEN SQ-INSULIN SCH ×2 (08:06→20:36)
[2020-03-06] MEDS: SPIRONOLACTONE 25 MG TABLET PO SCH (08:12)
[2020-03-06] MEDS: LISINOPRIL 10 MG TABLET PO SCH (08:13)
[2020-03-06] MEDS: CEFTRIAXONE PMX 1GM/50ML 50 ML IV SCH (10:33)
[2020-03-06] MEDS: ATORVASTATIN 80 MG TABLET PO SCH (20:36)
[2020-03-07] MEDS: INSULIN LISPRO 100 UNITS/ML, PEN SQ-INSULIN SCH ×4 (00:58→20:28)
[2020-03-07 05:39] VITALS: BP 113/50
[2020-03-07] MEDS: CARVEDILOL 3.125 MG TABLET PO SCH ×2 (06:22→17:39)
[2020-03-07 07:33] LABS: FIO2 78 %
[2020-03-07 07:46] LABS: ALANINE AMINOTRANSFERASE 66 U/L (12-78); ALBUMIN 2.8 g/dL (3.4-5.0); ANION GAP 8 mmol/L (5-15); CALCIUM 8.8 mg/dL (8.5-10.1); CHLORIDE 100 mmol/L (98-107); CREATININE 0.85 mg/dL (0.7-1.3)
[2020-03-07] MEDS: FUROSEMIDE 20 MG/2 ML IV SCH ×2 (07:47→17:39)
[2020-03-07 07:48] LABS: ALKALINE PHOSPHATASE 86 U/L (45-117); BILIRUBIN,TOTAL 0.4 mg/dL (0.2-1.0); TOTAL PROTEIN 7.2 g/dL (6.4-8.2)
[2020-03-07] MEDS: PANTOPRAZOLE 40 MG IV IVPush SCH (09:03)
[2020-03-07] MEDS: INSULIN GLARGINE 100 UNITS/ML, PEN SQ-INSULIN SCH ×2 (09:03→20:28)
[2020-03-07] MEDS: SODIUM CHLORIDE FLUSH 10ML SYR IVF SCH ×2 (09:04→20:19)
[2020-03-07] MEDS: LISINOPRIL 10 MG TABLET PO SCH (09:04)
[2020-03-07] MEDS: SPIRONOLACTONE 25 MG TABLET PO SCH (09:04)
[2020-03-07] MEDS: ASPIRIN 81 MG TABLET CHEW NG SCH (09:04)
[2020-03-07] MEDS: CEFTRIAXONE PMX 1GM/50ML 50 ML IV SCH (10:39)
[2020-03-07] MEDS: AcetaZOLAMIDE INJ 500 MG IVPush SCH (10:49)
[2020-03-07] MEDS: ATORVASTATIN 80 MG TABLET PO SCH (20:19)
[2020-03-08] MEDS: INSULIN LISPRO 100 UNITS/ML, PEN SQ-INSULIN SCH ×4 (02:09→21:45)
[2020-03-08 04:31] LABS: BASOPHILS # (AUTO) 0.07 x10^3/uL (0-0.1); BASOPHILS % (AUTO) 1 % (0-1); EOSINOPHILS # (AUTO) 0.42 x10^3/uL (0-0.4); EOSINOPHILS % (AUTO) 5 % (1-7); LYMPHOCYTES # (AUTO) 0.89 x10^3/uL (1-3.4); LYMPHOCYTES % (AUTO) 10 % (22-44); MD NO; MEAN CORPUSCULAR HEMOGLOBIN 34.4 pg (27.5-34.5); MEAN CORPUSCULAR HGB CONC 33.7 g/dL (33.2-36.2); MEAN CORPUSCULAR VOLUME 102.3 fL (81-97); MEAN PLATELET VOLUME 8.1 fL (7.4-10.4); MONOCYTES # (AUTO) 0.94 x10^3/uL (0.2-0.8); MONOCYTES % (AUTO) 11 % (2-9); NEUTROPHILS # (AUTO) 6.37 x10^3/uL (1.8-6.8); NEUTROPHILS % (AUTO) 73 % (42-75); PLATELET COUNT 434 x10^3/uL (130-400); RED BLOOD COUNT 3.52 x10^6/uL (4.38-5.82); RED CELL DISTRIBUTION WIDTH 12.1 % (9.4-14.8)
[2020-03-08 04:40] LABS: ALANINE AMINOTRANSFERASE 85 U/L (12-78); ALBUMIN 2.9 g/dL (3.4-5.0); ANION GAP 4 mmol/L (5-15); CALCIUM 8.8 mg/dL (8.5-10.1); CHLORIDE 104 mmol/L (98-107); CREATININE 0.78 mg/dL (0.7-1.3)
[2020-03-08 04:43] LABS: ALKALINE PHOSPHATASE 92 U/L (45-117); BILIRUBIN,TOTAL 0.5 mg/dL (0.2-1.0); TOTAL PROTEIN 7.3 g/dL (6.4-8.2)
[2020-03-08 05:43] VITALS: BP 130/64
[2020-03-08] MEDS: CARVEDILOL 3.125 MG TABLET PO SCH ×2 (05:43→17:22)
[2020-03-08] MEDS: PANTOPRAZOLE 40 MG IV IVPush SCH (07:49)
[2020-03-08] MEDS: AcetaZOLAMIDE INJ 500 MG IVPush SCH (07:51)
[2020-03-08] MEDS: FUROSEMIDE 20 MG/2 ML IV SCH ×2 (07:53→17:22)
[2020-03-08] MEDS: SODIUM CHLORIDE FLUSH 10ML SYR IVF SCH ×2 (07:54→21:44)
[2020-03-08] MEDS: SPIRONOLACTONE 25 MG TABLET PO SCH (08:04)
[2020-03-08] MEDS: ASPIRIN 81 MG TABLET CHEW NG SCH (08:04)
[2020-03-08] MEDS: INSULIN GLARGINE 100 UNITS/ML, PEN SQ-INSULIN SCH ×2 (08:05→21:45)
[2020-03-08] MEDS: LISINOPRIL 10 MG TABLET PO SCH (08:05)
[2020-03-08] MEDS: CEFTRIAXONE PMX 1GM/50ML 50 ML IV SCH (10:10)
[2020-03-08 15:16] VITALS: BP 116/58
[2020-03-08 18:40] VITALS: BP 104/62
[2020-03-08] MEDS: ATORVASTATIN 80 MG TABLET PO SCH (21:44)
[2020-03-09 00:45] VITALS: BP 110/65
[2020-03-09] MEDS: INSULIN LISPRO 100 UNITS/ML, PEN SQ-INSULIN SCH ×4 (02:45→21:44)
[2020-03-09 05:20] LABS: BASOPHILS # (AUTO) 0.03 x10^3/uL (0-0.1); BASOPHILS % (AUTO) 0 % (0-1); EOSINOPHILS # (AUTO) 0.41 x10^3/uL (0-0.4); EOSINOPHILS % (AUTO) 5 % (1-7); LYMPHOCYTES # (AUTO) 1.02 x10^3/uL (1-3.4); LYMPHOCYTES % (AUTO) 11 % (22-44); MD NO; MEAN CORPUSCULAR HEMOGLOBIN 33.8 pg (27.5-34.5); MEAN CORPUSCULAR HGB CONC 33.6 g/dL (33.2-36.2); MEAN CORPUSCULAR VOLUME 100.6 fL (81-97); MEAN PLATELET VOLUME 8.8 fL (7.4-10.4); MONOCYTES # (AUTO) 1.01 x10^3/uL (0.2-0.8); MONOCYTES % (AUTO) 11 % (2-9); NEUTROPHILS # (AUTO) 6.78 x10^3/uL (1.8-6.8); NEUTROPHILS % (AUTO) 73 % (42-75); PLATELET COUNT 478 x10^3/uL (130-400); RED BLOOD COUNT 3.63 x10^6/uL (4.38-5.82); RED CELL DISTRIBUTION WIDTH 11.8 % (9.4-14.8)
[2020-03-09 05:36] LABS: ANION GAP 6 mmol/L (5-15); CALCIUM 9.1 mg/dL (8.5-10.1); CHLORIDE 103 mmol/L (98-107)
[2020-03-09 05:38] LABS: CREATININE 0.83 mg/dL (0.7-1.3)
[2020-03-09 05:43] VITALS: BP 115/65
[2020-03-09] MEDS: CARVEDILOL 3.125 MG TABLET PO SCH ×2 (05:47→17:44)
[2020-03-09 06:51] VITALS: BP 114/68
[2020-03-09 09:38] VITALS: BP 125/79
[2020-03-09] MEDS: FUROSEMIDE 20 MG/2 ML IV SCH ×2 (09:54→17:43)
[2020-03-09] MEDS: ASPIRIN 81 MG TABLET CHEW NG SCH (09:54)
[2020-03-09] MEDS: SPIRONOLACTONE 25 MG TABLET PO SCH (09:54)
[2020-03-09] MEDS: LISINOPRIL 10 MG TABLET PO SCH (09:55)
[2020-03-09] MEDS: SODIUM CHLORIDE FLUSH 10ML SYR IVF SCH ×2 (09:55→21:45)
[2020-03-09] MEDS: INSULIN GLARGINE 100 UNITS/ML, PEN SQ-INSULIN SCH ×2 (10:03→21:45)
[2020-03-09 13:29] VITALS: BP 117/71
[2020-03-09 18:30] VITALS: BP 120/62
[2020-03-09] MEDS: ATORVASTATIN 80 MG TABLET PO SCH (21:43)
[2020-03-10 01:02] VITALS: BP 117/68
[2020-03-10] MEDS: INSULIN LISPRO 100 UNITS/ML, PEN SQ-INSULIN SCH ×4 (01:52→21:13)
[2020-03-10 05:04] LABS: ANION GAP 5 mmol/L (5-15); CALCIUM 9.3 mg/dL (8.5-10.1); CHLORIDE 103 mmol/L (98-107)
[2020-03-10] MEDS: CARVEDILOL 3.125 MG TABLET PO SCH ×2 (06:11→17:52)
[2020-03-10 08:01] VITALS: BP 114/72
[2020-03-10] MEDS: ASPIRIN 81 MG TABLET CHEW NG SCH (10:06)
[2020-03-10] MEDS: SPIRONOLACTONE 25 MG TABLET PO SCH (10:06)
[2020-03-10] MEDS: LISINOPRIL 10 MG TABLET PO SCH (10:06)
[2020-03-10] MEDS: SODIUM CHLORIDE FLUSH 10ML SYR IVF SCH ×2 (10:06→21:12)
[2020-03-10] MEDS: FUROSEMIDE 20 MG/2 ML IV SCH ×2 (10:06→17:52)
[2020-03-10] MEDS: INSULIN GLARGINE 100 UNITS/ML, PEN SQ-INSULIN SCH ×2 (10:17→21:14)
[2020-03-10 12:03] VITALS: BP 119/75
[2020-03-10 19:45] VITALS: BP 121/71
[2020-03-10] MEDS: ATORVASTATIN 80 MG TABLET PO SCH (21:16)
[2020-03-11 01:34] VITALS: BP 108/65
[2020-03-11] MEDS: INSULIN LISPRO 100 UNITS/ML, PEN SQ-INSULIN SCH ×4 (03:07→20:22)
[2020-03-11] MEDS: CARVEDILOL 3.125 MG TABLET PO SCH ×2 (05:59→17:41)
[2020-03-11 08:24] VITALS: BP 119/64
[2020-03-11] MEDS: FUROSEMIDE 20 MG/2 ML IV SCH ×2 (08:31→17:41)
[2020-03-11] MEDS: SPIRONOLACTONE 25 MG TABLET PO SCH (08:32)
[2020-03-11] MEDS: ASPIRIN 81 MG TABLET CHEW NG SCH (08:32)
[2020-03-11] MEDS: LISINOPRIL 10 MG TABLET PO SCH (08:32)
[2020-03-11] MEDS: INSULIN GLARGINE 100 UNITS/ML, PEN SQ-INSULIN SCH ×2 (10:35→20:21)
[2020-03-11] MEDS: SODIUM CHLORIDE FLUSH 10ML SYR IVF SCH ×2 (10:36→20:18)
[2020-03-11 14:20] VITALS: BP 113/70
[2020-03-11 19:04] VITALS: BP 109/65
[2020-03-11] MEDS: ATORVASTATIN 80 MG TABLET PO SCH (20:17)
[2020-03-12 02:00] VITALS: BP 112/67
[2020-03-12] MEDS: INSULIN LISPRO 100 UNITS/ML, PEN SQ-INSULIN SCH ×4 (03:24→21:23)
[2020-03-12] MEDS: CARVEDILOL 3.125 MG TABLET PO SCH ×2 (05:23→18:00)
[2020-03-12 08:18] VITALS: BP 115/70
[2020-03-12] MEDS: ASPIRIN 81 MG TABLET CHEW NG SCH (08:19)
[2020-03-12] MEDS: SPIRONOLACTONE 25 MG TABLET PO SCH (08:19)
[2020-03-12] MEDS: LISINOPRIL 10 MG TABLET PO SCH (08:19)
[2020-03-12] MEDS: FUROSEMIDE 20 MG/2 ML IV SCH ×2 (08:19→16:14)
[2020-03-12] MEDS: SODIUM CHLORIDE FLUSH 10ML SYR IVF SCH ×2 (08:20→21:24)
[2020-03-12] MEDS: INSULIN GLARGINE 100 UNITS/ML, PEN SQ-INSULIN SCH ×2 (08:28→21:24)
[2020-03-12 19:36] VITALS: BP 100/64
[2020-03-12] MEDS: ATORVASTATIN 80 MG TABLET PO SCH (21:22)
[2020-03-13 01:17] VITALS: BP 93/57
[2020-03-13] MEDS: INSULIN LISPRO 100 UNITS/ML, PEN SQ-INSULIN SCH ×2 (03:06→08:07)
[2020-03-13 06:35] VITALS: BP 102/63
[2020-03-13] MEDS: INSULIN GLARGINE 100 UNITS/ML, PEN SQ-INSULIN SCH (08:07)
[2020-03-13] MEDS: CARVEDILOL 3.125 MG TABLET PO SCH (08:08)
[2020-03-13] MEDS: SPIRONOLACTONE 25 MG TABLET PO SCH (08:26)
[2020-03-13] MEDS: LISINOPRIL 10 MG TABLET PO SCH (08:27)
[2020-03-13] MEDS: SODIUM CHLORIDE FLUSH 10ML SYR IVF SCH (08:27)
[2020-03-13] MEDS: ASPIRIN 81 MG TABLET CHEW NG SCH (08:27)
[2020-03-13] MEDS: FUROSEMIDE 20 MG/2 ML IV SCH (08:27)
[2020-03-13 12:28] VITALS: BP 110/60
== END 2020-03-13 13:13 | disposition hospice, home (50) | DRG 870 ==
LOC: ED 01:29 → EDIP 02:59 → ICU 05:49 → CCU 03-01 18:29 → 3N 03-08 18:30 → 3WST 03-12 11:26 → 3N 03-12 11:29 → 3WST 03-12 14:25
PROVIDERS: ADMIT Internal Medicine; ATTEND Family Medicine
PROC: 5A1955Z Respiratory Ventilation, Greater than 96 Consecutive Hours (ICD-10-PCS; principal; 2020-02-25)
PROC: 0BH17EZ Insertion of Endotracheal Airway into Trachea, Via Natural or Artificial Opening (ICD-10-PCS; 2020-02-25)
PROC: 02HV33Z Insertion of Infusion Device into Superior Vena Cava, Percutaneous Approach (ICD-10-PCS; 2020-02-25)
PROC: B548ZZA Ultrasonography of Superior Vena Cava, Guidance (ICD-10-PCS; 2020-02-25)
DX: A41.9 Sepsis, unspecified organism (principal); J10.08 Influenza due to other identified influenza virus with other specified pneumonia; J96.01 Acute respiratory failure with hypoxia; N17.0 Acute kidney failure with tubular necrosis; I21.4 Non-ST elevation (NSTEMI) myocardial infarction; I50.23 Acute on chronic systolic (congestive) heart failure; R65.21 Severe sepsis with septic shock; J96.02 Acute respiratory failure with hypercapnia; E87.1 Hypo-osmolality and hyponatremia; Z99.11 Dependence on respirator [ventilator] status; C67.9 Malignant neoplasm of bladder, unspecified; Z20.828 Contact with and (suspected) exposure to other viral communicable diseases; D53.9 Nutritional anemia, unspecified; E87.6 Hypokalemia; G47.33 Obstructive sleep apnea (adult) (pediatric); I11.0 Hypertensive heart disease with heart failure; I25.5 Ischemic cardiomyopathy; I27.20 Pulmonary hypertension, unspecified; Z66 Do not resuscitate; Z87.891 Personal history of nicotine dependence; Z90.79 Acquired absence of other genital organ(s); Z95.0 Presence of cardiac pacemaker; Z51.5 Encounter for palliative care; R13.10 Dysphagia, unspecified
CPT/HCPCS: 31500; 36415; 36556; 36600; 71045; 74018; 74230; 80048; 80053; 80061; 81001; 82247; 82607; 82803; 82962; 83036; 83605; 83735; 83880; 84145; 84443; 84478; 84484; 85014; 85018; 85025; 85520; 85610; 85730; 87040; 87070; 87081; 87086; 87205; 87400; 93005; 93306; 94002; 94003; 94150; 94640; 94660; 96361; 96365; 96375; 96376; 99291; G0378; J0456; J0696; J1644; J1650; J1940; J2250; J2704; C9113; J1120; J1815; J7030; J7050